=== PATIENT | female | born 1995 | race African-American/Black ===

== ENCOUNTER 2020-05-04 15:07 | Emergency (ER) | payer MEDICAID ==
[~2020-05-04] VITALS: Ht 165.1 cm; Wt 68.0 kg
--- NOTE | 2020-05-04 15:25 | NUR ---
C/O RIGHT ANKLE PAIN AND SWELLING SINCE YESTERDAY AFTER MISSING A STEP AND TWISTING IT. PT STS SHE HEARD A CRACK NOISE. TO ER BED 20, HOOKED TO MONITOR, CHANGED TO HOSP GOWN, WARM BLANKET PROVIDED, AWAITING MD BAUTISTA
[2020-05-04] MEDS ORDERED: IBUPROFEN 600 MG TABLET PO ONE (16:00)
[2020-05-04] MEDS ORDERED: IBUPROFEN 600 MG TABLET ONE (16:21)
--- NOTE | 2020-05-04 17:00 | NUR ---
PATIENT'S RIGHT ANKLE WRAPPED WITH ERIC BANDAGE, AND GIVEN CRUTCHES. Patient discharged to home in stable condition. Written and verbal after care instructions given. Patient verbalizes understanding of instruction.
[2020-05-04 17:01] VITALS: BP 111/68
== END 2020-05-04 17:13 | disposition home or self-care (01) ==
LOC: ER 15:11
DX: S99.811A Other specified injuries of right ankle, initial encounter (principal); Z60.2 Problems related to living alone; X58.XXXA Exposure to other specified factors, initial encounter; Y93.89 Activity, other specified; Y92.89 Other specified places as the place of occurrence of the external cause; Y99.8 Other external cause status
CPT/HCPCS: 73610-TC

== ENCOUNTER 2020-11-09 10:31 | Emergency (ER) | payer MEDICAID, OTHER ==
[~2020-11-09] VITALS: Ht 165.1 cm; Wt 68.0 kg
[2020-11-09 10:39] VITALS: BP 104/70
--- NOTE | 2020-11-09 10:43 | NUR ---
SEEN AND EXAMINED BY .
[2020-11-09] MEDS ORDERED: ONDA4TAB11 PO (10:44)
[2020-11-09] MEDS ORDERED: TRAM50TA2 PO (10:44)
[2020-11-09] MEDS ORDERED: KETOROLAC TROMETHAMINE INJ 60 MG/2 ML VIAL IM ONE ×2 (10:45→11:00)
--- NOTE | 2020-11-09 10:50 | NUR ---
PT SIGNED THE WAIVER STATING SHE IS NOT AND AGREEING TO RECEIVED THE TORADOL INJECTION IM.
--- NOTE | 2020-11-09 10:57 | NUR ---
R KNEE IMMOBILIZER APPLIED.
--- NOTE | 2020-11-09 11:07 | NUR ---
Patient discharged to home in stable condition. Written and verbal after care instructions given. Patient verbalizes understanding of instruction.
== END 2020-11-09 11:09 | disposition home or self-care (01) ==
LOC: ER 10:31
DX: S83.094A Other dislocation of right patella, initial encounter (principal); Z60.2 Problems related to living alone; Z79.899 Other long term (current) drug therapy; X58.XXXA Exposure to other specified factors, initial encounter; Y93.89 Activity, other specified; Y92.89 Other specified places as the place of occurrence of the external cause; Y99.8 Other external cause status
CPT/HCPCS: 29505; 96372; 99283; J1885